=== PATIENT | female | born 1985 | race Caucasian/White ===

== ENCOUNTER 2017-08-02 06:50 | Inpatient (IN) | payer BC, MEDICAID ==
[2017-08-02] VITALS (39 sets, daily range): BP systolic 73–176; BP diastolic 51–101
[~2017-08-02] VITALS: Ht 175.3 cm; Wt 115.7 kg
[~2017-08-02 06:50] MED LIST: ACHYD1T PO; DCS100C PO; IBP800T PO; PRENATAL VITAMIN PO
[2017-08-02] MEDS ORDERED: D5 LR IV SOLUTION 1,000 ML IV ONE (07:04)
--- OUTSIDE RECORDS SUMMARY | 2017-08-02 07:11 | XMS REPORT | Continuity of Care Document ---
Author Author [facility] Organization [facility] Address Unknown Phone Unavailable Allergies Active Description Code Type Severity Reaction Onset Reported/Identified Relationship to Patient Clinical Status Yes No Known Drug Allergies [id number] Drug Allergy Unknown N/ A 06/19/2014 Medications Problems Date Dx Coded Attending Type Code Diagnosis Diagnosed By 06/19/2014 EMETERIO FIGUEREDO DO Ot 623.8 06/19/2014 EMETERIO FIGUEREDO DO Ot 640.03 12/14/2014 Ot 644.03 12/29/2014 Ot 660.41 12/29/2014 Ot 665.41 12/29/2014 Ot V04.81 12/29/2014 Ot V06.1 12/29/2014 Ot V27.0 Procedures Results Encounters ACCT No. Visit Date/Time Discharge Status Pt. Type Provider Facility Loc./Unit Complaint [id number] 06/19/2014 09:24:00 2013 12:14:00 DIS Emergency EMETERIO FIGUEREDO DO [facility] ER [id number] 12/27/2014 11:28:00 Document Registration [id number] 12/13/2014 20:32:00 Document Registration
[2017-08-02] MEDS ORDERED: OXYTOCIN/NORMAL SALINE 500 ML IV ONE (07:55)
[2017-08-02] MEDS ORDERED: OXYTOCIN/NORMAL SALINE 500 ML IV SCH ×2 (08:00→08:08)
--- NOTE | 2017-08-02 08:08 | OB Bishop Score ---
Tracey Score 10 LOREE PLASENCIA MD Aug 02, 2017 8:08 am
--- NOTE | 2017-08-02 08:08 | History & Physical ---
History and Physical Date Seen by Provider: Aug 02, 2017 Time Seen by Provider: 08:06 this patient is a 30-year-old -5 white female with a due date of 101 and 17 presenting now for induction of labor at 39 weeks gestation. Her complicated and her GBS culture was negative after 35 weeks gestation. He denies rupture membranes or bleeding. She is having occasional contractions. Allergies are none Medications are vitamins Medical social and surgical histories are per the antepartum record HEENT exam is normal Neck is supple no lymphadenopathy and no thyromegaly Abdomen is gravid soft nontender nondistended Extremities show no clubbing cyanosis. There is no Homans sign. Pelvic exam shows a cervix that is 4 cm dilated 5070 percent effaced +1 station soft and intermediate. This equates to a Tracey score of 10 Assessment and plan 39 week gestation with a favorable cervix admitted now for elective induction of labor. We anticipate a vaginal delivery but would be prepared for if needed. 39 weeks gestation admitted for elective induction of labor Allergies and Home Medications Allergies Coded Allergies: No Known Drug Allergies (Unverified , 06/19/14) Home Medications Docusate Sodium 100 Mg Cap, 100 MG PO BID, #60 Prescribed by: LOREE CRWO on 12/28/14820 Hydrocodone Bit/Acetaminophen 1 Ea Tab, 1-2 EA PO Q4H PRN for PAIN, #30 Prescribed by: LOREE CROW on 12/28/14820 Ibuprofen 800 Mg Tab, 800 MG PO Q6H, #60 Prescribed by: LOREE CROW on 12/28/14820 [ Vitamin] , 1 TAB PO DAILY, (Reported) LOREE PLASENCIA MD Aug 02, 2017 8:08 am
[2017-08-02] MEDS ORDERED: BENZOCAINE/MENTHOL (DERMOPLAST) 56 ML CAN TP PRN (08:15)
[2017-08-02] MEDS ORDERED: TETANUS,DIPTH,PERTUSS P/F (BOOSTRIX) 0.5 ML VIAL IM ONE (08:15)
[2017-08-02] MEDS ORDERED: oxyCODONE/APAP 10/325MG (PERCOCET 10) TABLET PO PRN (08:15)
[2017-08-02] MEDS ORDERED: D5 LR IV SOLUTION 1,000 ML IV SCH (08:33)
[2017-08-02 08:40] LABS: BASOPHILS % (AUTO) 0 % (0-10); EOSINOPHILS # (AUTO) 0.1 10^3/uL (0.0-0.3); EOSINOPHILS % (AUTO) 1 % (0-10); LYMPHOCYTES # (AUTO) 2.6 X 10^3 (1.0-4.0); LYMPHOCYTES % (AUTO) 29 % (12-44); MEAN CORPUSCULAR HEMOGLOBIN 25 PG (25-34); MEAN CORPUSCULAR HGB CONC 32 G/DL (32-36); MEAN CORPUSCULAR VOLUME 80 FL (80-99); MEAN PLATELET VOLUME 10.6 FL (7.4-10.4); MONOCYTES # (AUTO) 0.6 X 10^3 (0.0-1.0); MONOCYTES % (AUTO) 6 % (0-12); NEUTROPHILS # (AUTO) 5.9 X 10^3 (1.8-7.8); NEUTROPHILS % (AUTO) 65 % (42-75); PLATELET COUNT 204 10^3/uL (130-400); RED BLOOD COUNT 4.37 10^6/uL (4.35-5.85); RED CELL DISTRIBUTION WIDTH 15.3 % (10.0-14.5); WHITE BLOOD COUNT 9.1 10^3/uL (4.3-11.0)
[2017-08-02] MEDS ORDERED: SUFENTA 0.6MCG/ML BUPIVA 0.125 100 ML ONE (08:40)
[2017-08-02] MEDS ORDERED: MINERAL OIL CONCENTRATE 99.9% 15 ML UDC TOP PRN (08:45)
[2017-08-02] MEDS ORDERED: BUPIVACAINE 0.25% 30 ML (SENSORCAINE) VIAL ONE (08:46)
[2017-08-02] MEDS ORDERED: fentaNYL INJECTION 100 MCG/2 ML AMP ONE (08:46)
[2017-08-02] MEDS ORDERED: DOCUSATE SODIUM 100 MG (COLACE) CAP PO SCH (09:00)
[2017-08-02] MEDS ORDERED: LACTATED RINGERS 1,000 ML IV ONE (10:19)
[2017-08-02] MEDS ORDERED: diphenhydrAMINE 50 MG/ML INJ (BENADRYL) IV PRN (10:30)
[2017-08-02] MEDS ORDERED: ONDANSETRON 4 MG/2 ML (SDV) Z0FRAN IV PRN (10:30)
[2017-08-02] MEDS ORDERED: EPIDURAL (SUFENTA 0.6MCG/ML BUPIVA 0.125%) 100 ML BAG EPI SCH (10:30)
[2017-08-02] MEDS ORDERED: NALOXONE 0.4 MG/ML 1 ML (NARCAN) VIAL IV PRN (10:30)
[2017-08-02] MEDS ORDERED: CATHETER FLUSH 10 ML SYR IV PRN (10:30)
[2017-08-02] MEDS ORDERED: LIDOCAINE/EPI 2% 1:200,00 (XYLOCAINE) 10 ML VIAL ONE (12:16)
[2017-08-02] MEDS ORDERED: CATHETER FLUSH 10 ML SYR IV SCH (14:00)
[2017-08-02] MEDS: KETOROLAC 30 MG/ML VIAL IV SCH ×2 (14:14→20:15)
[2017-08-03 02:15] VITALS: BP 103/66
[2017-08-03] MEDS: KETOROLAC 30 MG/ML VIAL IV SCH (02:15)
--- NOTE | 2017-08-03 04:02 | OPERATIVE REPORT ---
DATE OF SERVICE: 08/02/2017 DELIVERY NOTE The patient delivered by term spontaneous vaginal delivery of viable female infant with Apgars of 8 and 9 at 1 and 5 minutes respectively with a weight of 8 pounds 5 ounces, time of 13:07 and a cord arterial blood gas, it is pending. Mother delivered the head over the perineum, which turtled to some extent. We were prepared for and anticipating a possible dystocias, this patient had shown dystocia with her first delivery. The nurses performed Tawnya positioning with mother pushing and rotation from on the left shoulder in a clockwise manner to rotate the baby forward. The shoulders rotate at about 45 degrees and then the left shoulder released on to the pelvic brim. The delivery was then accomplished in the usual manner. Approximately one and half minutes from delivery of the head until delivery of the . This included bulb suctioning the as well. On exam, there was seemed to be plenty of room around the baby. The infant was bulb suctioned again on completion of delivery. The umbilical cord eventually was doubly clamped, father cut the cord, the baby was passed to mom's abdomen. The baby initially was somewhat lethargic and due to the pressure of the delivery, but very promptly was moving all extremities, was pinking nicely, had excellent tone and reflexes and a lusty cry in less than 45 seconds after delivery. Apgars were 8 and 9. The placenta delivered spontaneously Gutierrez with a 3-vessel cord and did have a true knot. The cervix, vagina, rectum and perineum were examined and found intact, except for a midline episiotomy that was performed as the baby's head distended to the perineum and there was not room for the baby to come through and to ensure adequate room for potential dystocia that was being anticipated. The episiotomy allow for any patient in an atraumatic delivery. The episiotomy was repaired in the usual manner with a single suture of 3-0 Vicryl Rapide. Sponge and needle counts were correct on completion of the delivery and repair. ESTIMATED BLOOD LOSS: Around 400 mL. The patient remained in the LDR for recovery. The baby remained with the mother. Job ID: [id number] DocumentID: [id number] Dictated Date: 08/02/2017 13:29:07 Roll Or Tape Edge Machine Operator Date: 08/03/2017 04:01:08 Dictated By: LOREE PLASENCIA MD
[2017-08-03 06:28] LABS: BASOPHILS % (AUTO) 0 % (0-10); EOSINOPHILS # (AUTO) 0.1 10^3/uL (0.0-0.3); EOSINOPHILS % (AUTO) 1 % (0-10); LYMPHOCYTES # (AUTO) 2.7 X 10^3 (1.0-4.0); LYMPHOCYTES % (AUTO) 29 % (12-44); MEAN CORPUSCULAR HEMOGLOBIN 25 PG (25-34); MEAN CORPUSCULAR HGB CONC 31 G/DL (32-36); MEAN CORPUSCULAR VOLUME 81 FL (80-99); MEAN PLATELET VOLUME 10.7 FL (7.4-10.4); MONOCYTES # (AUTO) 0.6 X 10^3 (0.0-1.0); MONOCYTES % (AUTO) 7 % (0-12); NEUTROPHILS # (AUTO) 5.8 X 10^3 (1.8-7.8); NEUTROPHILS % (AUTO) 63 % (42-75); PLATELET COUNT 183 10^3/uL (130-400); RED BLOOD COUNT 3.29 10^6/uL (4.35-5.85); RED CELL DISTRIBUTION WIDTH 15.1 % (10.0-14.5); WHITE BLOOD COUNT 9.3 10^3/uL (4.3-11.0)
--- NOTE | 2017-08-03 07:13 | Progress Note-Standard ---
Standard Progress Note Progress Notes/Assess & Plan Date Seen by Provider: Aug 03, 2017 Time Seen by Provider: 07:12 Progress/Assessment & Plan this patient is without complaint. She is ambulating, voiding, tolerating fairly well, has good pain control. Denies chest pain, denies shortness of breath, denies nausea vomiting. Vital Signs Date Time Temp Pulse Resp B/P (MAP) Pulse Ox O2 Delivery O2 Flow Rate FiO2 08/03/17 02:15 98.3 81 18 103/66 98 Room Air 08/02/17 20:15 98.4 79 18 107/61 98 Room Air 08/02/17 15:17 92 18 111/67 Room Air 08/02/17 15:02 81 18 105/57 Room Air 08/02/17 14:48 82 18 115/59 Room Air 08/02/17 14:32 85 18 120/60 Room Air 08/02/17 14:17 86 18 106/59 Room Air 08/02/17 14:02 94 18 123/58 Room Air 08/02/17 13:50 93 18 114/56 Room Air 08/02/17 13:33 109 20 110/68 Room Air 08/02/17 13:18 100 20 100/51 Room Air 08/02/17 13:04 118 20 135/98 Room Air 08/02/17 12:50 97.9 102 20 154/101 Room Air 08/02/17 12:34 100 20 133/82 Room Air 08/02/17 12:19 93 20 129/78 Room Air 08/02/17 12:05 86 20 125/71 99 Room Air 08/02/17 11:35 87 20 128/73 98 Room Air 08/02/17 11:21 87 20 122/72 100 Room Air 08/02/17 11:03 97.1 82 20 136/70 99 Room Air 08/02/17 10:50 83 20 133/73 99 Room Air 08/02/17 10:33 96 20 122/68 98 Room Air 08/02/17 10:13 85 20 136/75 99 Room Air 08/02/17 10:08 94 20 129/73 100 Room Air 08/02/17 10:03 96.8 89 20 129/73 100 Room Air 08/02/17 09:58 91 20 117/66 99 Room Air 08/02/17 09:53 100 20 118/66 99 Room Air 08/02/17 09:48 103 20 114/70 98 Room Air 08/02/17 09:43 86 20 104/62 97 Room Air 08/02/17 09:39 74 20 97/58 97 Room Air 08/02/17 09:36 71 20 73/51 99 Room Air 08/02/17 09:28 102 20 165/87 100 Room Air 08/02/17 09:24 96 20 149/85 100 Room Air 08/02/17 09:17 98 20 158/85 100 Room Air 08/02/17 09:14 98 20 176/87 100 Room Air 08/02/17 09:07 96 20 148/78 100 Room Air 08/02/17 09:03 102 20 150/74 100 Room Air 08/02/17 09:00 100 18 164/93 100 Room Air 08/02/17 08:45 93 18 121/72 Room Air 08/02/17 08:29 83 18 123/64 Room Air 08/02/17 07:43 96.7 96 18 134/82 Room Air vital signs are stable. Patient is afebrile. Fundus is firm below the umbilicus and nontender. Extremities show no clubbing or cyanosis. There is no Homans sign. There is some pretibial pitting edema that is normal. Assessment and plan day number 1 status post term spontaneous vaginal delivery doing well. Plan is for discharge home today or tomorrow as preferred by patient Final Diagnosis spontaneous vaginal delivery at 39 weeks LOREE PLASENCIA MD Aug 03, 2017 7:13 am
[2017-08-03] MEDS ORDERED: IBUP-1780 PO (07:15)
[2017-08-03] MEDS ORDERED: OXYC-465 PO (07:15)
[2017-08-03] MEDS ORDERED: DOCU100C37 PO (07:15)
--- NOTE | 2017-08-03 07:16 | Discharge Instructions ---
Discharge Instructions Discharge Medications New, Converted or Re-Newed RX: RX on Chart Patient Instructions Patient Instructions: as directed Return to The Hospital For: as directed Activity & Diet Discharge Diet: No Restrictions Activity as Tolerated: No Orders-Post D/C & Referrals Follow Up Appt: Call to make follow up appt. for patient in 4 weeks. Activity Per routine post vaginal delivery instructions. Diet as tolerated Patient may shower or tub bathe as desired. LOREE PLASENCIA MD Aug 03, 2017 7:16 am
[2017-08-03 09:24] VITALS: BP 111/68
[2017-08-03] MEDS: IBUPROFEN 800 MG (MOTRIN) TAB PO SCH ×2 (09:28→15:30)
--- NOTE | 2017-08-03 11:25 | Anesthesia-Regional Post-Op ---
Regional Patient Condition Mental Status: Alert, Oriented x3 Circulation: Same as Pre-Op Headache: Absent Sensation: Full Recovery Motor Block: Absent Post Op Complications Complications None Follow Up Care/Instructions Patient Instructions None needed. Anesthesia/Patient Condition Patient is doing well, no complaints, stable vital signs, no apparent adverse anesthesia problems. No complications reported per nursing. ABRIL FRYE CRNA Aug 03, 2017 11:25
[2017-08-03 15:15] VITALS: BP 108/73
== END 2017-08-03 17:00 | disposition home or self-care (01) | DRG 775 ==
LOC: LDRP 06:50
PROVIDERS: ADMIT Obstetrics & Gynecology; ATTEND Obstetrics & Gynecology
PROC: 10E0XZZ Delivery of Products of Conception, External Approach (ICD-10-PCS; principal; 2017-08-02)
PROC: 0W8NXZZ Division of Female Perineum, External Approach (ICD-10-PCS; 2017-08-02)
PROC: 3E033VJ Introduction of Other Hormone into Peripheral Vein, Percutaneous Approach (ICD-10-PCS; 2017-08-02)
DX: O69.2XX0 Labor and delivery complicated by other cord entanglement, with compression, not applicable or unspecified (principal); O66.0 Obstructed labor due to shoulder dystocia; Z37.0 Single live birth; Z3A.39 39 weeks gestation of pregnancy
CPT/HCPCS: 36415; 85025; 86850; 86900; 86901

== ENCOUNTER → 2019-12-17 | Outpatient (CLI) | payer BC, MEDICAID ==
[~2019-12-17] MED LIST changes: +DOCU100C37 PO; +IBUP-1780 PO; +OXYC-465 PO
== END ==
LOC: LABNPT 10:57
PROVIDERS: ATTEND Obstetrics & Gynecology
DX: O14.03 Mild to moderate pre-eclampsia, third trimester (principal)
CPT/HCPCS: 82570; 84156

== ENCOUNTER → 2020-01-15 | Outpatient (CLI) | payer BC, MEDICAID | LOC: LABNPT 10:36 | PROVIDERS: ATTEND Obstetrics & Gynecology | DX: O28.0 Abnormal hematological finding on antenatal screening of mother (principal); Z3A.00 Weeks of gestation of pregnancy not specified | CPT/HCPCS: 82570; 84156 ==

== ENCOUNTER → 2020-01-30 | Outpatient (CLI) | payer BC, MEDICAID | LOC: LABNPT 10:45 | PROVIDERS: ATTEND Obstetrics & Gynecology | DX: O28.8 Other abnormal findings on antenatal screening of mother (principal) | CPT/HCPCS: 82570; 84156 ==

== ENCOUNTER 2020-02-04 11:33 | Inpatient (IN) | payer MEDICAID ==
[~2020-02-04] VITALS: Ht 175.3 cm; Wt 116.2 kg
[2020-02-04] VITALS (47 sets, daily range): BP systolic 84–160; BP diastolic 46–98
--- NOTE | 2020-02-04 11:23 | NUR ---
FERNANDO BARCLAY presented to unit via AMBULATORY from OFFICE, accompanied by FOR INDUCTION OF LABOR. FERNANDO BARCLAY weighed, gowned, voided, and to bed. EFHM and TOCO applied, VS taken. FERNANDO BARCLAY oriented to bed controls, call light, TV, heat, and A/C controls.
--- OUTSIDE RECORDS SUMMARY | 2020-02-04 12:07 | XMS REPORT ---
Author Author [facility] Organization [facility] Address [address] [address] Care Team Providers Care Reference Library Assistant Name Role Phone NO, LOCAL PHYSICIAN Unavailable LOREE Pride MD Unavailable Unavailable LOREE PANTOJA MD Unavailable Unavailable Allergies Normalized Allergy Reported Date of Reaction(s) Care Provider Facility Allergy Type classification allergen Allergy Onset DA (4 Unclassified No Known Drug 06-19-2014 - no information LOREE Not Available sources.) Allergies ERINN , (23829) Medications No Information Problems Active Problems Problem Normalized Date of Normalized Normalized Provider Fac ility Classification Problem(s) Problem Problem Problem Sta tus Onset/Resoluti Duration on Residual 39 weeks 01-18-2020 - Episodic Active LOREE [facility] ia codes; gestation of Lenora PANTOJA unclassified [facility] - (1 source.) [place] ([address]) Other Abnormal 01-18-2020 - Episodic Active LOREE [facility] ia complications hematological Lenora PANTOJA of finding on [facility] - (2 sources.) [place] screening of (31972) mother Other High vaginal 01-18-2020 - Episodic Active LOREE [facility] Via complications laceration, Lenora PANTOJA of ; delivered, [facility] - puerperium with or [place] affecting without (38547) management of mention of mother (3 antepartum sources.) condition Umbilical cord Labor and 01-18-2020 - Episodic Active LOREE [facility] Via complication delivery Lenora PANTOJA (4 sources.) complicated by [facility] - other cord Martha entanglement, (98180) with compression, not applicable or unspecified Hypertension Mild to 12-18-2019 - Episodic Active LOREE [facility] Via complicating moderate Lenora PANTOJA ; pre-eclampsia, [facility] - childbirth and [facility] the puerperium trimester (27647) (3 sources.) Immunizations Need for 01-18-2020 - Episodic Active LOREE [facility] Via and screening prophylactic Lenora PANTOJA for infectious vaccination [facility] - disease (6 and [place] sources.) inoculation (42687) against diphtheria-tet anus-pertussis , combined [DTP] [DTaP] Translations: [ ND FOR PROPHYLACTIC VACCIN AND INOCULATI, ND FOR PROPHYLACTIC VACCIN AND INOCULATI] Fetopelvic Obstructed 01-18-2020 - Episodic Active LOREE [facility] Via disproportion; labor due to [place] PANTOJA obstruction (7 shoulder [facility] - sources.) dystocia [place] Translations: (27772) [ SHOULDER DYSTOCIA-DELIV ] Other Single live 01-18-2020 - Episodic Active LOREE [facility] Via and [place] PANTOJA delivery Translations: [facility] - including [ [place] normal (7 DELIVER-SINGLE (28979) sources.) LIVEBORN] Early or Threatened 01-18-2020 - Episodic Active LOREE [facility] Via threatened premature [place] PANTOJA labor (3 labor, [facility] - sources.) antepartum [place] condition or (48369) complication Residual Weeks of 01-18-2020 - Episodic Active LOREE [facility] V ia codes; gestation of ERINN Lenora unclassified not [facility] - (2 sources.) specified [place] ([address]28) Past or Other Problems Problem Normalized Date of Normalized Normalized Provider Fac ility Classification Problem(s) Problem Problem Problem Sta tus Onset/Resoluti Duration on Unclassified 39 weeks no information no information LOREE Not Available (3 sources.) gestation of ERINN , (80153) Procedures Procedure Normalized Procedure Procedure Result Performer Facility Date 2017 DELIVERY OF PRODUCTS no information no name (no wanda ne) [facility] ([address]248) DELIVERY OF PRODUCTS no information no name (no phone) Not A vailable (42743) OF [facility], [facility] 2017 DIVISION OF FEMALE no information no name (no phone ) [facility] PERINEUM, EXTERNAL AP [facility] (68559) DIVISION OF FEMALE no information no name (no phone) Not Elizabeth ilable (55065) PERINEUM, EXTERNAL AP 2017 INTRODUCTION OF OTH no information no name (no phon e) [facility] [place] HORMONE INTO [facility] (68970) INTRODUCTION OF OTH no information no name (no phone) Not Av ailable (77848) HORMONE INTO [facility] 12-27-2014 Repair of other no information no name (no phone) [facility] current [facility] laceration (73413) Repair of other no information no name (no phone) Not Availa ble (18026) current obstetric laceration Immunizations The data below is from unstructured sourcesNo immunization records.No immunization records.No immunization records. Results The data below is from unstructured sourcesNo known relevant diagnostic tests, laboratory data and/or discharge summary. Vital Signs The data below is from unstructured sources Vital Response Date/Time Temperature (Fahrenheit) 97.8 degree s F (97.6 - 99.5) Temperature (Calculated Celsius) 36. 50926 degrees C (36.4 - 37.5) Temperature Source Tympanic Pulse Rate (adult) 91 bpm (60 - 90) Respiratory Rate 18 bpm (12 - 24) Blood Pressure 104/56 mm Hg Height (Feet) 5 feet Height (Inches) 9.00 inches Height (Calculated Centimeters) 175. 297829 cm Weight (Pounds) 245 pounds Weight (Calculated Grams) 431702.132 gm Weight (Calculated Kilograms) 111.13 0132 kilograms Calculated BMI 36.18 Vital Response Date/Time Temperature (Fahrenheit) 98.1 degree s F (97.6 - 99.5) Temperature (Calculated Celsius) 36. 95285 degrees C (36.4 - 37.5) Temperature Source Temporal Pulse Rate (adult) 91 bpm (60 - 90) Respiratory Rate 20 bpm (12 - 24) O2 Sat by Pulse Oximetry 98 % (88 - 100) Blood Pressure 123/92 mm Hg Pain Pain Intensity 1 Height (Feet) 5 feet Height (Inches) 9 inches Height (Calculated Centimeters) 175. 819181 cm Weight (Pounds) 200 pounds Weight (Calculated Kilograms) 90.718 475 kilograms Calculated BMI 29.53 Vital Response Date/Time Temperature (Fahrenheit) 97.0 degree s F (97.6 - 99.5) Temperature (Calculated Celsius) 36. 28647 degrees C (36.4 - 37.5) Temperature Source Tympanic Pulse Rate (adult) 84 bpm (60 - 90) Respiratory Rate 20 bpm (12 - 24) O2 Sat by Pulse Oximetry 98 % (88 - 100) Blood Pressure 120/78 mm Hg Pain Pain Intensity 2 Height (Feet) 5 feet Height (Inches) 9.00 inches Height (Calculated Centimeters) 175. 514970 cm Weight (Pounds) 248 pounds Weight (Calculated Grams) 259146.909 gm Weight (Calculated Kilograms) 112.49 0909 kilograms Calculated BMI 36.62 Vital Response Date/Time Temperature (Fahrenheit) 97.0 degree s F (97.6 - 99.5) Temperature (Calculated Celsius) 36. 90195 degrees C (36.4 - 37.5) Temperature Source Tympanic Pulse Rate (adult) 84 bpm (60 - 90) Respiratory Rate 20 bpm (12 - 24) O2 Sat by Pulse Oximetry 98 % (88 - 100) Blood Pressure 120/78 mm Hg Pain Pain Intensity 2 Height (Feet) 5 feet Height (Inches) 9.00 inches Height (Calculated Centimeters) 175. 189420 cm Weight (Pounds) 248 pounds Weight (Calculated Grams) 550008.909 gm Weight (Calculated Kilograms) 112.49 0909 kilograms Calculated BMI 36.62 Interventions No Information Plan of Treatment The data below is from unstructured sources Discharge Date 12/14/14 8:29am Disposition 01 HOME, SELF-CARE Instructions/Education Provided OB O UTPATIENT DISCHARGE Forms Provided PDI Women Services/OP Prescriptions See Medications Sectio n Discharge Date 12/29/14 7:00pm Disposition 30 STILL A PATIENT Instructions/Education Provided POST DISCHARGE Forms Provided PDI Prescriptions See Medications Sectio n Referrals (Unspecified) Reason(s) for Referral: call tuesday for 4 week postpatrum check up with dr pantoja Discharge Date 12/29/14 7:00pm Disposition 30 STILL A PATIENT Instructions/Education Provided POST DISCHARGE Forms Provided PDI Prescriptions See Medications Sectio n Referrals (Unspecified) Reason(s) for Referral: call tuesday for 4 week postpatrum check up with dr pantoja Goals No Information Social History No Information Functional Status The data below is from unstructured sourcesNo functional status results.No functional status results.No functional status results.No functional status results.No functional status results.No functional status results.No functional status results. Mental Status No Information Encounters Encounter Normalized Encounter Encounter Diagnosis Care Provi brian Organization Date Type 2017 Evaluation and no information no name (no phone) n o organization name - management of (no phone) 08-03-2017 inpatient 2017 Evaluation and no information LOREE PANTOJA [facility] - management of (no phone) [facility] 08-03-2017 inpatient (no phone) 12-13-2014 Evaluation and no information no name (no phone) n o organization name - management of (no phone) 12-14-2014 inpatient 2017 Patient encounter no information no name (no phone) no organization name - (no phone) 08-03-2017 01-15-2020 Patient encounter no information LOREE MANCILLA [facility] procedure (no phone) [facility] (no phone) 12-17-2019 Patient encounter no information LOREE MANCILLA [facility] [place] procedure (no phone) [facility] (no phone) Medical Equipment No Information Payers No Information Advance Directives Directive Response Recor ded Date/Time Advance Directives No 8:34pm Organ Donor Yes 06/19/14 9:43am Resuscitation Status Full Code 12/13/14 8:34pm Directive Response Recor ded Date/Time Advance Directives No 9:43am Organ Donor Yes 06/19/14 9:43am Resuscitation Status Full Code 06/19/14 9:43am Directive Response Recor ded Date/Time Advance Directives No 11:00am Health Care Power of Senior Counsel No 12/27/14 11:00am Organ Donor Yes 12/27/14 11:00am Resuscitation Status Full Code 12/27/14 11:00am Discharge Instructions Patient Instructions Physician Instructions Plan of Care/Instructions/FU: As directed Activity as Tolerated: Yes Discharge Diet: No Restrictions Return to The Hospital For: As directed Other Inst to Patient Return to clinic as scheduled on Tuesday or call on Tuesday to reschedule appointment for any day next week Continue on vitamins. Return promptly for signs symptoms or indications of labor, ruptured membranes, excessive bleeding. No hospital discharge instructions.No hospital discharge instructions. Patient Instructions Physician Instructions New, Converted or Re-Newed RX: RX on Chart Plan of Care/Instructions/FU: as directed Activity as Tolerated: No Discharge Diet: No Restrictions Return to The Hospital For: has directed Other Inst to Patient Follow Up Appt: Call to make follow up appt. for patient in 4 weeks. Activity Per routine post vaginal delivery instructions. Diet as tolerated Patient may shower or tub bathe as desired. Additional Source Comments This clinical document has been generated using [employer] software that has been certified by the Office of the National Coordinator for Health Information Technology (ONC 15.99.04.3023.Diam.31.00.0.126410) and the National Committee for Composition Roofer (NCQA, as an eMeasure certified technology). FOR RECORDS PERTAINING TO PATIENTS WHO ARE OR HAVE BEEN ENROLLED IN A CHEMICAL D EPENDENCY/SUBSTANCE ABUSE PROGRAM, SOME INFORMATION MAY BE OMITTED. This clinica l summary was aggregated from multiple sources. Caution should be exercised in using it in the provision of clinical care. This summary normalizes information from multiple sources, and as a consequence, information in this document may ma terially change the coding, format and clinical context of patient data. In veronica tion, data may be omitted in some cases. CLINICAL DECISIONS SHOULD BE BASED ON T HE PRIMARY CLINICAL RECORDS. [employer] provides no warranty or guara ntee of the accuracy or completeness of information in this document.The followi ng information is based on time limited clinical information
--- OUTSIDE RECORDS SUMMARY | 2020-02-04 12:07 | XMS REPORT | Continuity of Care Document ---
Author Organization Unknown Address Unknown Phone Unavailable Allergies Active Description Code Type Severity Reaction Onset Reported/Identified Relationship to Patient Clinical Status Yes NKDA N/A N/ A Yes No Known Drug Allergies [id number] Drug Allergy Unknown N/A 06/19/2014 Medications Medication Packaging Start Date St op Date Route Dosage Sig BACTRIM DS 05/07 ORAL 14 twice da hunter CIPRO 06/29/2016 ORAL 20 twice da hunter Problems Date Dx Coded Attending Type Code Diagnosis Diagnosed By 06/19/2014 EMETERIO FIGUEREDO DO Ot 623.8 06/19/2014 EMETERIO FIGUEREDO DO Ot 640.03 12/14/2014 Ot 644.03 THR T LEATHA LABOR- ANTEPART 12/29/2014 Ot 660.41 ANNA ULDER DYSTOCIA-DELIV 12/29/2014 Ot 665.41 HIG H VAGINAL LACER-DELIV 12/29/2014 Ot V04.81 ND FOR PROPHYLACTIC VACCIN AND INOCULATI 12/29/2014 Ot V06.1 [id number], COMBINED [ 12/29/2014 Ot V27.0 DELI HILARIO-SINGLE LIVEBORN 08/03/2017 LOREE PLASENCIA MD Ot O66.0 OBSTRUCTED LABOR DUE TO SHOULDER DYSTOCI 08/03/2017 LOREE PLASENCIA MD, Ot O69.2XX0 LABOR AND DEL COMP BY [facility] CORD ENTANGLE, 08/03/2017 LOREE PLASENCIA MD, Ot Z37.0 SINGLE LIVE 08/03/2017 LOREE PLASENCIA MD, Ot Z3A.39 39 WEEKS GESTATION OF 12/19/2019 LOREE PLASENCIA MD, Ot O14.03 MILD TO MODERATE PRE-ECLAMPSIA, THIRD TR 12/25/2019 LOREE PLASENCIA MD, Ot O14.03 MILD TO MODERATE PRE-ECLAMPSIA, THIRD TR 01/18/2020 LOREE PLASENCIA MD, Ot O14.03 MILD TO MODERATE PRE-ECLAMPSIA, THIRD TR 01/18/2020 LOREE PLASENCIA MD, Ot O28.0 ABNORMAL HEMATOLOG FINDING ON 01/18/2020 LOREE PLASENCIA MD, Ot Z3A.00 WEEKS OF GESTATION OF NOT SPEC 01/31/2020 LOREE PLASENCIA MD, Ot O28.8 OTHER ABNORMAL FINDINGS ON SCR Procedures Code Description Performed By Per formed On 75.69 REPA IR OB LACERATION NEC 12/27/2014 [id number] DI VISION OF FEMALE PERINEUM, EXTERNAL AP 2017 05E9HXH DE LIVERY OF PRODUCTS OF CONCEPTION, EXTE 2017 5X851AT IN TRODUCTION OF OTH HORMONE INTO PERIPH 2017 Results Test Result Range Complete blood count (CBC) with automate d white blood cell (WBC) differential - 08/02/17 07:25 Blood leukocytes automated count (number/volume) 9.1 10*3/uL 4.3-11.0 Blood erythrocytes automated count (number/volume) 4.37 10*6/uL 4.35-5.85 Venous blood hemoglobin measurement (mass/volume) 11.1 g/dL 11.5-16.0 Blood hematocrit (volume fraction) 35 % 35-52 Automated erythrocyte mean corpuscular volume 80 [ foz_us] 80-99 Automated erythrocyte mean corpuscular h emoglobin (mass per erythrocyte) 25 pg 25-34 Automated erythrocyte mean corpuscular h emoglobin concentration measurement (mass/volume) 32 g/dL 32-36 Automated erythrocyte distribution width ratio 15. 3 % 10.0- 14.5 Automated blood platelet count (count/volume) 204 10*3/uL 130-400 Automated blood platelet mean volume measurement 10.6 [foz_us] 7.4-10.4 Automated blood neutrophils/100 leukocytes 65 % 42-75 Automated blood lymphocytes/100 leukocytes 29 % 12-44 Blood monocytes/100 leukocytes 6 % 0-12 Automated blood eosinophils/100 leukocytes 1 % 0-10 Automated blood basophils/100 leukocytes 0 % 0-10 Blood neutrophils automated count (number/volume) 5.9 10*3 1.8-7.8 Blood lymphocytes automated count (number/volume) 2.6 10*3 1.0-4.0 Blood monocytes automated count (number/volume) 0. 6 10*3 0.0-1.0 Automated eosinophil count 0.1 10*3/uL 0 .0-0.3 Automated blood basophil count (count/volume) 0.0 10*3/uL 0.0-0.1 Blood type T Indirect antibody screen pa karla - 08/02/17 07:25 ABO+Rh group AP NRG Transfusion band number [id number] NRG Blood group antibody screen NEGATIVE NR G Complete blood count (CBC) with automate d white blood cell (WBC) differential - 08/03/17 06:19 Blood leukocytes automated count (number/volume) 9.3 10*3/uL 4.3-11.0 Blood erythrocytes automated count (number/volume) 3.29 10*6/uL 4.35-5.85 Venous blood hemoglobin measurement (mass/volume) 8.3 g/dL 11.5-16.0 Blood hematocrit (volume fraction) 27 % 35-52 Automated erythrocyte mean corpuscular volume 81 [ foz_us] 80-99 Automated erythrocyte mean corpuscular h emoglobin (mass per erythrocyte) 25 pg 25-34 Automated erythrocyte mean corpuscular h emoglobin concentration measurement (mass/volume) 31 g/dL 32-36 Automated erythrocyte distribution width ratio 15. 1 % 10.0- 14.5 Automated blood platelet count (count/volume) 183 10*3/uL 130-400 Automated blood platelet mean volume measurement 10.7 [foz_us] 7.4-10.4 Automated blood neutrophils/100 leukocytes 63 % 42-75 Automated blood lymphocytes/100 leukocytes 29 % 12-44 Blood monocytes/100 leukocytes 7 % 0-12 Automated blood eosinophils/100 leukocytes 1 % 0-10 Automated blood basophils/100 leukocytes 0 % 0-10 Blood neutrophils automated count (number/volume) 5.8 10*3 1.8-7.8 Blood lymphocytes automated count (number/volume) 2.7 10*3 1.0-4.0 Blood monocytes automated count (number/volume) 0. 6 10*3 0.0-1.0 Automated eosinophil count 0.1 10*3/uL 0 .0-0.3 Automated blood basophil count (count/volume) 0.0 10*3/uL 0.0-0.1 Urine protein/creatinine mass ratio - 02 /24/20 10:30 Urine protein measurement (mass/volume) 14 mg/dL 6-12 Urine creatinine measurement (mass/volume) 109 mg/ dL 30-125 Urine protein/creatinine mass ratio 0.13 NRG Urine protein/creatinine mass ratio - 10:36 Urine protein measurement (mass/volume) 16 mg/dL 6-12 Urine creatinine measurement (mass/volume) 98 mg/d L 30-125 Urine protein/creatinine mass ratio 0.16 NRG Urine protein/creatinine mass ratio - 10:30 Urine protein measurement (mass/volume) 22 mg/dL 6-12 Urine creatinine measurement (mass/volume) 92 mg/d L 30-125 Urine protein/creatinine mass ratio 0.24 NRG Encounters ACCT No. Visit Date/Time Discharge Status Pt. Type Provider Facility Loc./Unit Complaint [id number] 01/30/2020 10:45:00 23:59:59 CLS Outpatient LOREE PLASENCIA MD [facility] [id number] 01/15/2020 10:36:00 020 23:59:59 CLS Outpatient LOREE PLASENCIA MD [facility] O[facility]0 [id number] 12/17/2019 10:57:00 020 23:59:59 CLS Outpatient LOREE PLASENCIA MD [facility] [id number] 2017 06:50:00 017 17:00:00 DIS Inpatient LOREE PLASENCIA MD [facility] L[facility] INDUCTION [id number] 06/19/2014 09:24:00 014 12:14:00 DIS Emergency EMETERIO FIGUEREDO DO [facility] ER [id number] 12/27/2014 11:28:00 Document Registration [id number] 12/13/2014 20:32:00 Document Registration [id number] 08/01/2015 15:26:01 08/01/2015 15:2 6:01 DIS Outpatient [id number] 05/08/2016 06:23:57 Document Registration [id number] 05/08/2016 06:22:15 Document Registration [id number] 05/08/2016 06:22:14 Document Registration [id number] 05/08/2016 06:22:12 Document Registration [id number] 05/08/2016 06:22:11 Document Registration [id number] 05/08/2016 06:22:09 Document Registration [id number] 05/08/2016 06:22:08 Document Registration [id number] 05/07/2016 10:35:00 Document Registration
[2020-02-04] MEDS ORDERED: OXYTOCIN PRE-MIX DRIP 500 ML IV SCH ×2 (12:13→18:22)
[2020-02-04] MEDS ORDERED: OXYTOCIN PRE-MIX DRIP 500 ML IV ONE (12:14)
[2020-02-04] MEDS ORDERED: fentaNYL 2 mcg/ml BUPIVA 0.125 100 ML ONE (12:14)
[2020-02-04] MEDS ORDERED: D5 LR IV SOLUTION 1,000 ML IV ONE (12:14)
[2020-02-04] MEDS ORDERED: MINERAL OIL CONCENTRATE 99.9% 15 ML UDC TOP PRN (12:15)
[2020-02-04] MEDS ORDERED: LIDOCAINE/EPI 1%-1:200,000 (XYLOCAINE) 30 ML VIAL INJ ONE (12:15)
[2020-02-04 12:25] LABS: BASOPHILS % (AUTO) 0 % (0-10); EOSINOPHILS # (AUTO) 0.1 10^3/uL (0.0-0.3); EOSINOPHILS % (AUTO) 1 % (0-10); HEMATOCRIT 37 % (35-52); HEMOGLOBIN 11.5 G/DL (11.5-16.0); LYMPHOCYTES # (AUTO) 2.1 X 10^3 (1.0-4.0); LYMPHOCYTES % (AUTO) 25 % (12-44); MEAN CORPUSCULAR HEMOGLOBIN 24 PG (25-34); MEAN CORPUSCULAR HGB CONC 31 G/DL (32-36); MEAN CORPUSCULAR VOLUME 77 FL (80-99); MEAN PLATELET VOLUME 10.4 FL (7.4-10.4); MONOCYTES # (AUTO) 0.6 X 10^3 (0.0-1.0); MONOCYTES % (AUTO) 7 % (0-12); NEUTROPHILS # (AUTO) 5.9 X 10^3 (1.8-7.8); NEUTROPHILS % (AUTO) 68 % (42-75); PLATELET COUNT 181 10^3/uL (130-400); RED CELL DISTRIBUTION WIDTH 16.9 % (10.0-14.5); WHITE BLOOD COUNT 8.7 10^3/uL (4.3-11.0)
[2020-02-04 12:26] LABS: ALBUMIN 3.7 GM/DL (3.2-4.5); CHLORIDE 105 MMOL/L (98-107); POTASSIUM 3.9 MMOL/L (3.6-5.0); SODIUM 137 MMOL/L (135-145)
[2020-02-04] MEDS: D5 LR IV SOLUTION 1,000 ML IV SCH (12:26)
[2020-02-04 12:27] LABS: CALCIUM 9.5 MG/DL (8.5-10.1)
[2020-02-04 12:28] LABS: GLUCOSE 82 MG/DL (70-105); TOTAL PROTEIN 7.7 GM/DL (6.4-8.2)
[2020-02-04 12:30] LABS: BILIRUBIN,TOTAL 0.2 MG/DL (0.1-1.0); CARBON DIOXIDE 20 MMOL/L (21-32)
[2020-02-04 12:32] LABS: ALKALINE PHOSPHATASE 101 U/L (40-136); CREATININE SERUM 0.57 MG/DL (0.60-1.30); GFR ESTIMATED > 60
[2020-02-04 12:33] LABS: BUN/CREATININE RATIO 9
[2020-02-04 12:35] LABS: ALANINE AMINOTRANSFERASE 9 U/L (0-55); URIC ACID 3.3 MG/DL (2.6-7.2)
[2020-02-04] MEDS ORDERED: fentaNYL INJECTION 100 MCG/2 ML AMP ONE (12:38)
[2020-02-04] MEDS ORDERED: BUPIVACAINE 0.25% 30 ML (SENSORCAINE) VIAL ONE ×2 (12:38→18:45)
[2020-02-04] MEDS ORDERED: LACTATED RINGERS 1,000 ML IV ONE ×2 (12:42)
[2020-02-04] MEDS ORDERED: ONDANSETRON 4 MG/2 ML (SDV) Z0FRAN IV PRN (12:45)
[2020-02-04] MEDS ORDERED: EPIDURAL (fentaNYL 2 MCG/ML BUPIVA 0.125%)100 ML BAG EPI PRN (12:45)
[2020-02-04] MEDS ORDERED: NALOXONE 0.4 MG/ML 1 ML (NARCAN) VIAL IV PRN (12:45)
--- NOTE | 2020-02-04 15:28 | History & Physical ---
History and Physical Date Seen by Provider: Feb 04, 2020 Time Seen by Provider: 15:24 This patient is a 33-year-old A5 white female with a due date of February 19, 2020 putting her 38+ weeks gestation. She is seen in clinic on this date with her blood pressures were 160s over 90s. She had a history of preeclampsia with her first . She was sent to labor and delivery secondary to significant PIH/preeclampsia. GBS culture was negative after 35 weeks gestation. Patient denies rupture membranes or bleeding. Patient has history of a complex left ovarian cyst. Allergies are none Medications are vitamins Medical social and surgical histories are per the antepartum record HEENT exam is normal Neck is supple no lymphadenopathy no thyromegaly Abdomen is gravid soft nontender nondistended Extremities show no clubbing cyanosis. There is no Homans sign. Pelvic exam in clinic shows a cervix that was 4 cm dilated 30 percent effaced -1-2 station. Vertex presentation with a intact membrane. Pelvic exam now shows cervix is 5-6 cm dilated 80 percent effaced 0-1 station vertex presentation with a bulging bag. Amniotomy is performed with release of copious clear fluid. monitor shows normal heart rate pattern with occasional contractions. Laboratory Tests 02/04/20 11:55 Laboratory Tests Test 02/04/20 11:55 02/04/20 12:30 Range/Units White Blood Count 8.7 4.3-11.0 10^3/uL Red Blood Count 4.80 4.35-5.85 10^6/uL Hemoglobin 11.5 11.5-16.0 G/DL Hematocrit 37 35-52 % Mean Corpuscular Volume 77 L 80-99 FL Mean Corpuscular Hemoglobin 24 L 25-34 PG Mean Corpuscular Hemoglobin Concent 31 L 32-36 G/DL Red Cell Distribution Width 16.9 H 10.0-14.5 % Platelet Count 181 130-400 10^3/uL Mean Platelet Volume 10.4 7.4-10.4 FL Neutrophils (%) (Auto) 68 42-75 % Lymphocytes (%) (Auto) 25 12-44 % Monocytes (%) (Auto) 7 0-12 % Eosinophils (%) (Auto) 1 0-10 % Basophils (%) (Auto) 0 0-10 % Neutrophils # (Auto) 5.9 1.8-7.8 X 10^3 Lymphocytes # (Auto) 2.1 1.0-4.0 X 10^3 Monocytes # (Auto) 0.6 0.0-1.0 X 10^3 Eosinophils # (Auto) 0.1 0.0-0.3 10^3/uL Basophils # (Auto) 0.0 0.0-0.1 10^3/uL Sodium Level 137 135-145 MMOL/L Potassium Level 3.9 3.6-5.0 MMOL/L Chloride Level 105 98-107 MMOL/L Carbon Dioxide Level 20 L 21-32 MMOL/L Anion Gap 12 5-14 MMOL/L Blood Urea Nitrogen 5 L 7-18 MG/DL Creatinine 0.57 L 0.60-1.30 MG/DL Estimat Glomerular Filtration Rate > 60 BUN/Creatinine Ratio 9 Glucose Level 82 70-105 MG/DL Uric Acid 3.3 2.6-7.2 MG/DL Calcium Level 9.5 8.5-10.1 MG/DL Corrected Calcium 9.7 8.5-10.1 MG/DL Total Bilirubin 0.2 0.1-1.0 MG/DL Aspartate Amino Transf (AST/SGOT) 11 5-34 U/L Alanine Aminotransferase (ALT/SGPT) 9 0-55 U/L Alkaline Phosphatase 101 40-136 U/L Lactate Dehydrogenase 157 125-220 U/L Total Protein 7.7 6.4-8.2 GM/DL Albumin 3.7 3.2-4.5 GM/DL Urine Protein 15 H 6-12 MG/DL Urine Creatinine 77 30-125 MG/DL Urine Protein/Creatinine Ratio 0.19 Urine protein creatinine ratio was slightly elevated at 0.19. Assessment and plan term at 38+ weeks gestation with a notable PIH. Preeclampsia lab work is within normal limits. Plan is for amniotomy with augmentation of labor with Pitocin. Patient has been allowed an epidural already. We anticipate a vaginal 38+ week with PIH/mild preeclampsia Allergies and Home Medications Allergies Coded Allergies: No Known Drug Allergies (Unverified , 06/19/14) Home Medications Docusate Sodium 100 Mg Cap, 100 MG PO BID Prescribed by: LOREE CROW on 12/28/14 0821 Docusate Sodium 100 Mg Capsule, 100 MG PO BID Prescribed by: LOREE CROW on 08/03/17714 Hydrocodone Bit/Acetaminophen 1 Ea Tab, 1-2 EA PO Q4H PRN for PAIN Prescribed by: LOREE CROW on 12/28/14820 Ibuprofen 800 Mg Tab, 800 MG PO Q6H Prescribed by: LOREE CROW on 12/28/14820 Ibuprofen 800 Mg Tablet, 800 MG PO Q6H Prescribed by: LOREE CROW on 08/03/17714 Oxycodone HCl/Acetaminophen 1 Each Tablet, 1-2 TAB PO Q4H PRN for PAIN-MODERATE TO SEVERE Prescribed by: LOREE CROW on 08/03/17714 [ Vitamin] , 1 TAB PO DAILY, (Reported) Patient Home Medication List Home Medication List Reviewed: Yes Clinical Quality Measures DVT/VTE Risk/Contraindication: Risk Factor Score Per Nursin RFS Level Per Nursing on Admit: 2=Moderate LOREE PLASENCIA MD Feb 04, 2020 15:28
[2020-02-04] MEDS ORDERED: DOCU-143 PO (15:32)
[2020-02-04] MEDS ORDERED: IBUP-1780 PO (15:32)
[2020-02-04] MEDS ORDERED: OXYC1TAB87 PO (15:32)
--- NOTE | 2020-02-04 15:32 | Discharge Inst-Surgical ---
Discharge Inst-Surgical Depart Medication/Instructions New, Converted or Re-Newed RX: RX on Chart Consults/Follow Up Patient Instructions: As directed Orders & Referrals Follow Up Appt: Call to make follow up appt. for patient in 4 weeks. Activity Per routine post vaginal delivery instructions. Please call in RX to patient pharmacy. Diet as tolerated Patient may shower or tub bathe as desired. Activity Activity as Tolerated: No Diet Discharge Diet: No Restrictions LOREE PLASENCIA MD Feb 04, 2020 15:32
[2020-02-04] MEDS ORDERED: LIDOCAINE/EPI 2% 1:200,00 (XYLOCAINE) 10 ML VIAL ONE (16:08)
[2020-02-04] MEDS ORDERED: ONDANSETRON 4 MG/2 ML (SDV) Z0FRAN IVP PRN (18:30)
[2020-02-04] MEDS ORDERED: BENZOCAINE/MENTHOL (DERMOPLAST) 60 ML CAN TP PRN (18:30)
[2020-02-04] MEDS ORDERED: MEASLES,MUMPS,RUBELLA 1 EA INJ SC ONE (18:30)
[2020-02-04] MEDS ORDERED: TETANUS,DIPTH,PERTUSS P/F (BOOSTRIX) 0.5 ML VIAL IM ONE (18:30)
[2020-02-04] MEDS ORDERED: oxyCODONE/APAP 5/325MG (PERCOCET 5) TABLET PO PRN (18:30)
--- NOTE | 2020-02-04 19:43 | OPERATIVE REPORT ---
DATE OF SERVICE: 02/04/2020 The patient delivered by term spontaneous vaginal delivery a viable female infant with Apgars of 9 and 9 at 1 and 5 minutes respectively. Weight is 8 lbs. 8 oz., cord blood pH is 7.21. time of 17:35. The infant delivered over an intact perineum under epidural analgesia. The infant was bulb suctioned on delivery of the head. There was a mild shoulder dystocia that was released with Tawnya and suprapubic pressure. Less than 40 seconds between delivery of the head and delivery of the shoulders. The infant was bulb suctioned on completion of delivery. Umbilical cord was doubly clamped, father cut the cord. It was noted that there was a true knot in the umbilical cord. The infant was passed to mom's abdomen after the cord was clamped . Cord bloods were obtained. Placenta delivered spontaneously Wasserman. It was normal with a 3-vessel cord. The placenta was sent to pathology for permanent section. The cervix, vagina, rectum, and perineum were examined and found intact. There was a large pigmented lesion on the patient's left mons of approximately 1.5 cm with tongues of pigment extending into the peripheral tissue. She also had a skin tag in the right groin and there was a skin tag in the right groin and on the right labia majora. Both the skin tags were removed sharply and the site touched with silver nitrate to effect hemostasis. The pigmented lesion was excised with an elliptical incision of approximately 2 cm in length. The tissue was sent to pathology for permanent section. The defect was closed with three interrupted sutures of 3-0 nylon. Sponge and needle counts were correct on completion of delivery, the lesions excisions and the post-delivery inspection. The patient tolerated the delivery and the procedure well and remained in the LDR for recovery. The baby remained with the mom. Job ID: [id number] DocumentID: [id number] Dictated Date: 02/04/2020 18:07:50 Pluck Trimmer Date: 02/04/2020 19:42:40 Dictated By: LOREE PLASENCIA MD [facility]
[2020-02-04] MEDS: KETOROLAC 30 MG/ML VIAL IVP SCH (20:39)
[2020-02-04] MEDS: DOCUSATE SODIUM 100 MG (COLACE) CAP PO SCH (20:57)
[2020-02-04] MEDS: CATHETER FLUSH 10 ML SYR IV SCH (21:16)
[2020-02-05] MEDS: KETOROLAC 30 MG/ML VIAL IVP SCH ×2 (02:13→07:35)
[2020-02-05] MEDS: CATHETER FLUSH 10 ML SYR IV SCH (02:30)
[2020-02-05] MEDS: D5 LR IV SOLUTION 1,000 ML IV SCH (02:31)
[2020-02-05 04:30] VITALS: BP 114/75
--- NOTE | 2020-02-05 07:49 | Anesthesia-Regional Post-Op ---
Regional Patient Condition Mental Status: Alert, Oriented x3 Circulation: Same as Pre-Op Headache: Absent Sensation: Full Recovery Motor Block: Absent Post Op Complications Complications None Follow Up Care/Instructions Patient Instructions None needed. Anesthesia/Patient Condition Patient is doing well, no complaints, stable vital signs, no apparent adverse anesthesia problems. No complications reported per nursing. BENJAMÍN LEONARD CRNA Feb 05, 2020 07:49
[2020-02-05 08:00] VITALS: BP 115/77
--- NOTE | 2020-02-05 08:00 | Progress Note ---
Standard Progress Note Progress Notes/Assess & Plan Date Seen by a Provider: Feb 05, 2020 Time Seen by a Provider: 07:59 Progress/Assessment & Plan This patient is without complaint. She is ambulating, voiding, tolerating oral intake well has good pain control. Vital Signs 02/05/20 04:30 Temp 36.8 Pulse 73 Resp 20 B/P (MAP) 114/75 (88) Pulse Ox 98 O2 Delivery Room Air Vital signs are stable. Patient afebrile. The abdomen is benign. Extremities show clubbing or cyanosis. There is no Homans sign. Assessment and plan day number 1 status post term spontaneous vaginal delivery at 38 weeks gestation doing well. Plan for routine convalescence care with discharge home today or tomorrow as patient prefers Final Diagnosis 38 week spontaneous vaginal delivery LOREE PLASENCIA MD Feb 05, 2020 08:00
--- NOTE | 2020-02-05 08:01 | Discharge Inst-Surgical ---
Discharge Inst-Surgical Consults/Follow Up Orders & Referrals Follow Up Appt: Call to make follow up appt. for patient in 1 week for suture removal and 4 weeks for exam. Activity Per routine post vaginal delivery instructions. Please call in RX to patient pharmacy. Diet as tolerated Patient may shower or tub bathe as desired. LOREE PLASENCIA MD Feb 05, 2020 08:01
[2020-02-05] MEDS ORDERED: IBUPROFEN 800 MG (MOTRIN) TAB PO ONE ×2 (08:27→13:59)
[2020-02-05 08:31] VITALS: BP 121/59
[2020-02-05] MEDS: IBUPROFEN 800 MG (MOTRIN) TAB PO SCH ×3 (08:34→20:53)
[2020-02-05] MEDS: DOCUSATE SODIUM 100 MG (COLACE) CAP PO SCH ×2 (08:34→20:53)
[2020-02-05 12:00] VITALS: BP 128/83
--- NOTE | 2020-02-05 14:51 | NUR ---
report received from Meena GARCIA to assume nursing care
[2020-02-05 15:40] VITALS: BP 111/74
[2020-02-05 20:53] VITALS: BP 127/83
[2020-02-06 04:02] VITALS: BP 124/71
[2020-02-06] MEDS: IBUPROFEN 800 MG (MOTRIN) TAB PO SCH (04:02)
--- NOTE | 2020-02-06 06:35 | Progress Note ---
Standard Progress Note Progress Notes/Assess & Plan Date Seen by a Provider: Feb 06, 2020 Time Seen by a Provider: 06:34 Progress/Assessment & Plan This patient is without complaint. She is ambulating, voiding, tolerating oral intake well has good pain control. Vital Signs 02/05/20 04:30 Temp 36.8 Pulse 73 Resp 20 B/P (MAP) 114/75 (88) Pulse Ox 98 O2 Delivery Room Air Vital signs are stable. Patient afebrile. The abdomen is benign. Extremities show clubbing or cyanosis. There is no Homans sign. Assessment and plan day number 1 status post term spontaneous vaginal delivery at 38 weeks gestation doing well. Plan for routine convalescence care with discharge home today or tomorrow as patient prefers February 06, 2020 Patient is without complaint. She is ambulating, voiding, tolerating oral intake well has good pain control. Patient is requesting discharge home. Vital Signs 02/06/20 04:02 Temp 36.4 Pulse 79 Resp 18 B/P (MAP) 124/71 (88) Pulse Ox 99 O2 Delivery Room Air Vital signs are stable. Patient is afebrile. Abdomen is benign. Extremities show no clubbing or cyanosis. There is no Homans sign. Assessment and plan day number 2 status post term spontaneous vaginal delivery at 38 weeks gestation. Plan is for discharge home with follow- up in clinic Final Diagnosis 38 week VAGINAL delivery LOREE PLASENCIA MD Feb 06, 2020 06:35
[2020-02-06] MEDS: DOCUSATE SODIUM 100 MG (COLACE) CAP PO SCH (09:55)
--- NOTE | 2020-02-06 11:08 | NUR ---
Tdap given per Emar and pt prior to DC. Pt, and Baby Dcd with this RN. verbalizes no other complaints at this time
== END 2020-02-06 11:00 | disposition home or self-care (01) | DRG 768 ==
LOC: LDRP 11:33
PROVIDERS: ADMIT Obstetrics & Gynecology; ATTEND Obstetrics & Gynecology
PROC: 10E0XZZ Delivery of Products of Conception, External Approach (ICD-10-PCS; principal; 2020-02-04)
PROC: 0UBMXZX Excision of Vulva, External Approach, Diagnostic (ICD-10-PCS; 2020-02-04)
PROC: 0HBAXZX Excision of Inguinal Skin, External Approach, Diagnostic (ICD-10-PCS; 2020-02-04)
DX: O13.4 Gestational [pregnancy-induced] hypertension without significant proteinuria, complicating childbirth (principal); O14.04 Mild to moderate pre-eclampsia, complicating childbirth; O69.2XX0 Labor and delivery complicated by other cord entanglement, with compression, not applicable or unspecified; O99.713 Diseases of the skin and subcutaneous tissue complicating pregnancy, third trimester; L91.8 Other hypertrophic disorders of the skin; O26.893 Other specified pregnancy related conditions, third trimester; N90.89 Other specified noninflammatory disorders of vulva and perineum; Z37.0 Single live birth; Z3A.38 38 weeks gestation of pregnancy; Z23 Encounter for immunization
CPT/HCPCS: 36415; 80053; 82570; 83615; 84156; 84550; 85025; 86850; 86900; 86901; 90715

== ENCOUNTER 2020-03-13 05:28 | Outpatient (RCR) | payer MEDICAID ==
[~2020-03-13] VITALS: Ht 175.3 cm; Wt 109.1 kg
[~2020-03-13 05:28] MED LIST changes: +DOCU-143 PO; +OXYC1TAB87 PO
== END 2020-03-13 13:30 | disposition home or self-care (01) ==
LOC: PREOP 05:28
PROVIDERS: ATTEND Obstetrics & Gynecology
DX: Z01.818 Encounter for other preprocedural examination (principal)